=== PATIENT | female | born 1950 | race African-American/Black ===

== ENCOUNTER → 2023-07-19 | Day surgery (SDC) | payer MEDICAID ==
[~2023-07-19] VITALS: Ht 165.1 cm; Wt 80.7 kg
[~2023-07-19] MED LIST: ATOR-2 PO; BALANCED SALT IRRIG SOLN COMB1 500ML OP NR; CLON-493 PO; CLOP75TA33 PO; CYCLOPENTOLATE HCL 1% OPHTH DROPS 2ML RIGHTEYE NR; DORZ10DR8 EACHEYE; FAMO20TA8 PO; FENTANYL CITRATE/PF 50MCG/ML 2ML VIAL ONE; HYALURONATE SODIUM 10 MG/ML 0.55ML SYRINGE IO ONE; LACTATED RINGERS 1,000 ML IV SCH; LATA2.5D14 EACHEYE; LISI40TA13 PO; MULT-1203 PO; PHENYLEPHRINE HCL 10% OPHTH DROPS 5ML RIGHTEYE NR; SPIR25TA6 PO; TROPICAMIDE 1% OPHTH DROPS 15ML RIGHTEYE NR; TRYPAN BLUE 0.5 ML DISP.SYRIN IO ONE; [UNRECOGNIZED DRUG - CODE] PO
== END | disposition home or self-care (01) ==
LOC: OR 07:46
PROVIDERS: ATTEND Ophthalmology
DX: H25.89 Other age-related cataract (principal); I10 Essential (primary) hypertension; E78.5 Hyperlipidemia, unspecified; Z79.899 Other long term (current) drug therapy; Z98.890 Other specified postprocedural states
CPT/HCPCS: 66984; J3010; J3490; V2632; Q9957

== ENCOUNTER → 2024-02-14 | Day surgery (SDC) | payer MEDICAID ==
[~2024-02-14] VITALS: Ht 165.1 cm; Wt 72.1 kg
[~2024-02-14] MED LIST changes: +BALANCED SALT IRRIG SOLN 15ML ONE; -BALANCED SALT IRRIG SOLN COMB1 500ML OP NR; +BALANCED SALT IRRIG SOLN COMB1 500ML OP ONE; +CHOL200026 PO; -CLON-493 PO; +CLON0.2T PO; +CYCLOPENTOLATE HCL 1% OPHTH DROPS 2ML LEFTEYE NR; -CYCLOPENTOLATE HCL 1% OPHTH DROPS 2ML RIGHTEYE NR; -FAMO20TA8 PO; -HYALURONATE SODIUM 10 MG/ML 0.55ML SYRINGE IO ONE; +HYALURONATE SODIUM 10MG/ML 0.85ML SYRINGE IO ONE; +HYDROMORPHONE HCL/PF 1MG/ML INJ IV PRN; +LABETALOL 5MG/ML 4ML INJ IV PRN; -LACTATED RINGERS 1,000 ML IV SCH; +MEPERIDINE HCL/PF 25MG/ML CPJ IV PRN; +MIDAZOLAM HCL 2 MG/2 ML VIAL ONE; +MULT-622 PO; +NALOXONE HCL 0.4MG/ML VIAL IV PRN; +ONDANSETRON HCL 4MG/2ML INJ IV PRN; +PHENYLEPHRINE HCL 10% OPHTH DROPS 5ML LEFTEYE NR; -PHENYLEPHRINE HCL 10% OPHTH DROPS 5ML RIGHTEYE NR; +TROPICAMIDE 1% OPHTH DROPS 15ML LEFTEYE NR; -TROPICAMIDE 1% OPHTH DROPS 15ML RIGHTEYE NR
[2024-02-14] MEDS: LACTATED RINGERS 1,000 ML IV SCH (07:02)
== END | disposition home or self-care (01) ==
LOC: OR 05:29
PROVIDERS: ATTEND Ophthalmology
DX: H25.89 Other age-related cataract (principal); I10 Essential (primary) hypertension; E78.5 Hyperlipidemia, unspecified; K21.9 Gastro-esophageal reflux disease without esophagitis; Z86.73 Personal history of transient ischemic attack (TIA), and cerebral infarction without residual deficits; Z79.899 Other long term (current) drug therapy; Z98.890 Other specified postprocedural states
CPT/HCPCS: 66984; J3010; J3490 ×3; J2250; Q9957; V2632